=== PATIENT | female | born 1965 | race Caucasian/White ===

== ENCOUNTER → 2017-03-23 10:36 | Day surgery (SDC) | payer BC ==
[~2017-03-23 10:36] MED LIST: Diazepam TAB(*) 5 MG ONE; Heparin 2 UNITS/ML IVPREMIX* 2,000 ML IV ONE; Heparin(*) 1000 UNIT/ML 10 ML VIAL CATH LAB IV ONE; Iohexol 350 (CONTRAST) 200 ML MDV IV ONE; Lidocaine 1% INJ* 10 MG/ML 30 ML SDV ONE; Midazolam* 1 MG/ML 10 ML VIAL (10 MG) ONE; NS 0.9% 1000 ML* 1,000 ML IV SCH; VERAPAMIL 2.5 MG/ML 4 ML VIAL ONE; diPHENhydraMINE PO* 25 MG ONE; fentaNYL* 50 MCG/ML 2 ML VIAL (100 MCG VIAL) ONE; nitroGLYCERIN DRIP* 25,000 MCG/250 ML BTL ONE
[2017-03-23 12:20] LABS: ABS Basophils 0.1 10^3/ul (0-0.2); ABS Eosinophils 0 10^3/ul (0-0.6); ABS Lymphocytes 2.3 10^3/ul (1.0-4.8); ABS Monocytes 0.5 10^3/ul (0-0.8); ABS Neutrophils 4.2 10^3/ul (1.5-7.7); ABS Nucleated RBC 0 10^3/ul; Eosinophil % 0.6 % (0-6); Hematocrit 37 % (35-47); Hemoglobin 12.7 g/dl (12.0-16.0); Lymphocyte % 32.6 % (25-47); Mean Corpuscular HGB Conc 35 g/dl (31-36); Mean Corpuscular Hemoglobin 31 pg (27-31); Mean Corpuscular Volume 91 fL (80-97); Mean Platelet Volume 9 um3 (7.4-10.4); Nucleated Red Blood Cells % 0.1; Platelet Count 234 10^3/ul (150-450); Red Blood Count 4.05 10^6/ul (4.0-5.4); Red Cell Distribution Width 13 % (10.5-15)
[2017-03-23 12:39] LABS: EGFR Non-African American 86.1 (>60)
[2017-03-23 16:45] VITALS: BP 90/53
--- NOTE | 2017-03-29 22:37 | CATH ---
CC: Genevieve Harrell MD; Dr. Stone * CATH REPORT: DATE OF CATH: 03/23/17 - [facility] CATH PRIMARY CARE PHYSICIAN: Genevieve Harrell MD HARBOR DEPARTMENT MANAGER: Dr. Stone. PROCEDURES: 1. Bilateral selective coronary cineangiography. 2. Left heart catheterization. 3. Left ventriculography. HISTORY: A 51-year-old woman with flail mitral valve with symptomatic significant mitral regurgitation and chest pain, referred for coronary angiography to rule out underlying coronary artery disease. PROCEDURE ACCESS: Right radial artery, sheath 6F Slender. MEDICATIONS: 1. Subcu lidocaine. 2. IV Versed. 3. IV fentanyl. 4. Heparin 3000 units. 5. Verapamil 3 mg. 6. Nitroglycerin 300 mcg IA. DIAGNOSTIC CATHETER: A 5F TIG-4, 5F pigtail. HEMODYNAMICS: Initial BP 89/49, LV 72/2-15, no aortic valve gradient on pullback. Final BP 91/54. ANGIOGRAPHY: Left main: The left main is normal, has no stenosis. LAD: The LAD is moderate, extends to the apex, it supplies a moderate mid diagonal, the LAD has no significant stenosis. Circumflex: The circumflex is moderate, not dominant, with a moderate first marginal or ramus branch, it ends with a small posterolateral after a small second marginal. The circumflex has no stenosis. RCA: The RCA is dominant, large, with a moderate PDA and 2 posterolaterals, the RCA has no stenosis. LV gram: There is 3+ MR, normal LV systolic function, ejection fraction 55%. CONCLUSION: 1. No Obstructive coronary artery disease. 2. 3+ MR with preserved LVEF. 3. Successful right radial artery access. [id number]/[facility] #: [id number] [facility]
== END | disposition home or self-care (01) ==
LOC: CHICATH 10:36
PROVIDERS: ATTEND Internal Medicine Cardiovascular Disease
DX: R07.9 Chest pain, unspecified (principal); I34.0 Nonrheumatic mitral (valve) insufficiency; I34.1 Nonrheumatic mitral (valve) prolapse; M79.622 Pain in left upper arm; R00.2 Palpitations; R53.83 Other fatigue; G35 Multiple sclerosis; F41.8 Other specified anxiety disorders; E05.90 Thyrotoxicosis, unspecified without thyrotoxic crisis or storm; Z87.891 Personal history of nicotine dependence; R10.13 Epigastric pain
CPT/HCPCS: 36415; 80048; 84702; 85025; 93458; 99156; 99157; A9270-GY; C1769; J1644; J2250; J3010

== ENCOUNTER 2017-10-08 02:43 | Day surgery (SDC) | payer BC, OTHER ==
[2017-10-08] MEDS ORDERED: NS 0.9% 1000 ML* 1,000 ML IV ONE (03:06)
[2017-10-08] MEDS ORDERED: Morphine INJ* 2 MG/ML 1 ML SYRINGE (TWO MG - NEW SYRINGE VERSION) IV ONE (03:06)
[2017-10-08] MEDS ORDERED: Metoclopramide IV* 5 MG/ML 2 ML VIAL IV SLOW PU ONE (03:07)
--- NOTE | 2017-10-08 03:16 | ED ---
Abdominal Pain/Female - HPI Summary HPI Summary: This is Theodore mccoy Victor documenting for attending physician Adithya Field MD. This patient is a 51 year old F presenting to [facility] accompanied by her with a chief complaint of ABD pain that began a week ago but has gotten worse. Pt states that the pain was diffuse at first but has moved to her RLQ. The patient rates the pain 7/10 in severity. Patient reports intermittent vomiting and decreased appetite. Patient denies urinary sx, back pain, and fever. Last BM was 2 days ago and pt has a hx of constipation. Pt has not had any past ABD surgery. - History of Current Complaint Chief Complaint: EDAbdPain Stated Complaint: ABD PAIN Hx Obtained From: Patient Hx Last Menstrual Period: 03/26/15 Onset/Duration: Lasting Days, Still Present Timing: Constant Severity Initially: Mild Severity Currently: Severe Pain Intensity: 7 Pain Scale Used: 0-10 Numeric Location: Diffuse, Discrete At: RLQ Radiates: No Associated Signs and Symptoms: Positive: Decreased Appetite, Vomiting. Negative : Fever, Back Pain Allergies/Adverse Reactions: Allergies Allergy/AdvReac Type Severity Reaction Status Date / Time No Known Allergies Allergy Verified 10/08/17 03:09 Home Medications: Home Medications Aspirin 81 mg CHEW TAB* 81 mg PO DAILY 10/08/17 [History Confirmed 10/08/17] PMH/Surg Hx/FS Hx/Imm Hx Endocrine/Hematology History: Reports: Hx Thyroid Disease Denies: Hx Diabetes Cardiovascular History: Denies: Hx Hypertension, Hx Pacemaker/ICD History: Denies: Hx Dialysis, Hx Renal Disease Sensory History: Denies: Hx Hearing Aid Neurological History: Reports: Other Neuro Impairments/Disorders - ms Psychiatric History: Reports: Hx Anxiety, Hx Depression Denies: Hx Panic Disorder - Surgical History Surgery Procedure, Year, and Place: NOSE SURGERY AGE 18 - Immunization History Immunizations Up to Date: Yes Infectious Disease History: No Infectious Disease History: Denies: History Other Infectious Disease, Traveled Outside the [place] in Last 30 Days - Family History Known Family History: Negative: Cardiac Disease, Hypertension, Diabetes, Renal Disease, Respiratory Disease, Seizure Disorder, Blood Disorder - Social History Occupation: Employed Full-time Lives: With Family Alcohol Use: Rare Substance Use Type: Reports: None Smoking Status (MU): Never Smoked Tobacco Have You Smoked in the Last Year: No Review of Systems Constitutional: Other - decreased appetite. Negative: Fever Positive: Abdominal Pain, Vomiting Positive: no symptoms reported Musculoskeletal: Negative - back pain All Other Systems Reviewed And Are Negative: Yes Physical Exam - Summary Physical Exam Summary: VITAL SIGNS: Reviewed. GENERAL: Patient is a well-developed and nourished female who is lying comfortable in the stretcher. Patient is not in any acute respiratory distress. HEAD AND FACE: No signs of trauma. No ecchymosis, hematomas or skull depressions. No sinus tenderness. EYES: PERRLA, EOMI x 2, No injected conjunctiva, no nystagmus. EARS: Hearing grossly intact. Ear canals and tympanic membranes are within normal limits. MOUTH: Oropharynx within normal limits. NECK: Supple, trachea is midline, no adenopathy, no JVD, no carotid bruit, no c- spine tenderness, neck with full ROM. CHEST: Symmetric, no tenderness at palpation LUNGS: Clear to auscultation bilaterally. No wheezing or crackles. CVS: Regular rate and rhythm, S1 and S2 present, no murmurs or gallops appreciated. ABDOMEN: Soft, TTP in RLQ. No signs of distention. No rebound no guarding, and no masses palpated. Bowel sounds are normal. EXTREMITIES: FROM in all major joints, no edema, no cyanosis or clubbing. NEURO: Alert and oriented x 3. No acute neurological deficits. Speech is normal and follows commands. SKIN: Dry and warm Triage Information Reviewed: Yes Vital Signs On Initial Exam: Initial Vitals Temp Pulse Resp BP Pulse Ox 100.0 F 89 14 99/74 98 10/08/17 02:46 10/08/17 02:46 10/08/17 02:46 10/08/17 02:46 10/08/17 02:46 Vital Signs Reviewed: Yes Diagnostics - Vital Signs Vital Signs Temp Pulse Resp BP Pulse Ox 10/08/17 02:46 100.0 F 89 14 99/74 98 - Laboratory Result Diagrams: 10/08/17 03:11 10/08/17 03:11 Lab Statement: Any lab studies that have been ordered have been reviewed, and results considered in the medical decision making process. Abdominal Pain Fem Course/Dx - Course Course Of Treatment: This patient will be signed out to Dr. Hermosillo awaiting CT ABD/Pelvis and dispo. Bloodwork and UA obtained without significant abnormalities - Diagnoses Provider Diagnoses: Abdominal pain Discharge - Sign-Out/Discharge Documenting (check all that apply): Sign-Out Patient Signing out patient TO: Mic Hermosillo - Discharge Plan Referrals: Genevieve Harrell MD [Primary Care Provider] - Attestation Statement Scribe Attestation: This is Theodore mccoy documenting for attending physician Adithya Field MD. User Type: Provider with Scribe Provider Attestation: The documentation recorded by the scribe accurately reflects the service I personally performed and the decisions made by me.
[2017-10-08 03:22] LABS: ABS Basophils 0 10^3/ul (0-0.2); ABS Eosinophils 0.1 10^3/ul (0-0.6); ABS Lymphocytes 1.2 10^3/ul (1.0-4.8); ABS Monocytes 1.2 10^3/ul (0-0.8); ABS Neutrophils 11.9 10^3/ul (1.5-7.7); ABS Nucleated RBC 0 10^3/ul; Eosinophil % 0.8 % (0-6); Hematocrit 36 % (35-47); Hemoglobin 12.3 g/dl (12.0-16.0); Lymphocyte % 8.4 % (25-47); Mean Corpuscular HGB Conc 34 g/dl (31-36); Mean Corpuscular Hemoglobin 30 pg (27-31); Mean Corpuscular Volume 87 fL (80-97); Nucleated Red Blood Cells % 0.1; Platelet Count 275 10^3/ul (150-450); Red Blood Count 4.15 10^6/ul (4.00-5.40); Red Cell Distribution Width 15 % (10.5-15); White Blood Count 14.5 10^3/ul (3.5-10.8)
[2017-10-08 03:28] LABS: INR 1.06 (0.77-1.02)
[2017-10-08 03:37] LABS: EGFR Non-African American 86.1 (>60)
[2017-10-08] MEDS ORDERED: Iohexol 300* (CONTRAST) 10 ML SDV IV ONE (03:50)
[2017-10-08 04:44] LABS: Urine Appearance Clear; Urine Blood Negative (Negative); Urine Color Yellow; Urine Ketones Trace (Negative); Urine Protein Negative (Negative); Urine Specific Gravity 1.028 (1.010-1.030); Urine Urobilinogen Negative (Negative)
--- NOTE | 2017-10-08 07:08 | RAD ---
Addendum created by Ronal Erwin MD on 10/08/2017 7:23:50 AM EDT THIS REPORT CONTAINS FINDINGS THAT MAY BE CRITICAL TO PATIENT CARE. The findings were verbally communicated via telephone conference with DEXTER FORREST at 7:23 AM EDT on 10/08/2017. The findings were acknowledged and understood. Initial report created on 10/08/2017 7:07:43 AM EDT EXAM: CT Abdomen and Pelvis With Intravenous Contrast CLINICAL HISTORY: 51 years old, female; Pain; Abdominal pain; Localized; Right; Additional info: Abd pain TECHNIQUE: Axial computed tomography images of the abdomen and pelvis with intravenous contrast. Coronal and sagittal reformatted images were created and reviewed. COMPARISON: No relevant prior studies available. FINDINGS: Lung bases: There is a partially imaged region of consolidation versus scarring noted in the right lung base. ABDOMEN: Liver: Unremarkable. No mass. Gallbladder and bile ducts: Unremarkable. No calcified stones. No ductal dilation. Pancreas: Unremarkable. No mass. No ductal dilation. Spleen: Unremarkable. No splenomegaly. Adrenals: Unremarkable. No mass. Kidneys and ureters: Unremarkable. No solid mass. No hydronephrosis. Stomach and bowel: Unremarkable. No obstruction. No mucosal thickening. PELVIS: Appendix: The appendix is enlarged measuring approximately 1.4 CM. There are surrounding inflammatory changes noted. Findings are compatible with acute appendicitis. Bladder: Unremarkable. No mass. Reproductive: Unremarkable as visualized. ABDOMEN and PELVIS: Intraperitoneal space: No free air. There is no rim-enhancing fluid collection noted. Bones/joints: No acute fracture. No dislocation. Soft tissues: There is a small umbilical hernia containing mesenteric fat. Vasculature: Unremarkable. No abdominal aortic aneurysm. Lymph nodes: Unremarkable. No enlarged lymph nodes. IMPRESSION: The appendix is enlarged measuring approximately 1.4 CM. There are surrounding inflammatory changes noted. Findings are compatible with acute appendicitis. There is a partially imaged region of consolidation versus scarring noted in the right lung base. I have reviewed the report and agree with the findings and Immanuel Palm M.D.
--- NOTE | 2017-10-08 07:14 | ED ---
Progress - Progress Note Progress Note: This is scribe Juan Jose Walker documenting for attending Mic Hermosillo MD. Patient is signed out to Dr. Hermosillo via Dr. Field due to shift change at 0700 on 10/08/2017 CT A/P: IMPRESSION: The appendix is enlarged measuring approximately 1.4 CM. There are surrounding inflammatory changes noted. Findings are compatible with acute appendicitis. I, Dr. Hermosillo, personally performed the services described in this documentation as scribed in my presence and it is both accurate and complete. Re-Evaluation - Re-Evaluation First Eval Re-Evaluation Time: 07:31 Comment: Patient was asleep. MD did not wake patient up. Course/Dx - Course Course Of Treatment: Ms. Ricardo presented on the previous shift with RLQ pain. It started as generalized pain and discomfort a week ago and had moved into her RLQ. She has had some N/V. She had a few sips of water about [address] to the hospital. When my shift started, we were waiting for her CT scan to be read. The reading came back as acute appendicitis and she was given Zosyn and Dr. Neff was contacted. - Diagnoses Provider Diagnoses: Acute appendicitis - Provider Notifications Discussed Care Of Patient With: Chris Neff Time Discussed With Above Provider: 07:15 Instructed by Provider To: Other - Dr. Neff will see patient and admit patient to OR. Discharge - Sign-Out/Discharge Documenting (check all that apply): Patient Departure - ADMIT - Discharge Plan Condition: Stable Disposition: ADMITTED TO [facility] Referrals: Genevieve Harrell MD [Primary Care Provider] - - Billing Disposition and Condition Condition: STABLE Disposition: Admitted to [facility]
[2017-10-08] MEDS ORDERED: Piperacillin/Tazobac ADVAN(*) 3.375 GM in NS 0.9% 100 ML* 100 ML IVPB ONE (08:17)
[2017-10-08] MEDS ORDERED: HYDROmorphone INJ* 2 MG/ML CARPUJECT SYRINGE IV PRN (09:57)
[2017-10-08] MEDS ORDERED: Ondansetron INJ* 2 MG/ML VIAL IV PRN ×2 (09:57→15:03)
--- NOTE | 2017-10-08 11:13 | HP ---
CC: Dr. Genevieve Harrell; Dr. Nikole Stone; [facility] HISTORY AND PHYSICAL: DATE OF ADMISSION: 10/08/17 HISTORY OF PRESENT ILLNESS: I was contacted by the Emergency room regarding Ms. Ricardo 51-year-old female who presented to the [facility] Emergency Room with a 1-week history of worsening abdominal pain. Workup including labs and a CT scan was consistent with acute appendicitis and the surgery was contacted. The patient has received narcotics and is more comfortable at this time. The patient describes an onset of symptoms on Wednesday; this had started in the upper abdomen, it was associated with decreased appetite and nausea along with a rash. Patient felt that the rash was secondary to the picking berries in the bushes. She noted that by Wednesday she had more nausea and did on one occasion vomit. She continued to have abdominal pain and she tolerated only certain foods like tea and crackers. By Wednesday, pain had to increased to where she missed work and yesterday pain transferred from the upper abdomen to the right lower quadrant and at this point she presented to the emergency room. The patient denies any previous similar symptoms. She does have intermittent constipation and she is suffering with that now as well as. She denied any fevers and chills during this time. PAST MEDICAL HISTORY: Mitral valve prolapse, anxiety, and hypothyroidism. PAST SURGICAL HISTORY: Minimally invasive mitral valve repair. No abdominal surgeries. MEDICATIONS: Include: 1. Paxil. 2. Synthroid. 3. [place] Thyroid. 4. Aspirin 81 mg. 5. Xanax along with multivitamin. ALLERGIES: She has no known drug allergies. FAMILY HISTORY: Noncontributory. 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 She lives with the family and nonsmoker. Denies any drug use. REVIEW OF SYSTEMS: No fevers or chills. Decreased appetite as described. Cardiac issues as described. No cerebrovascular disease. No pulmonary issues. She does not snore. Abdominal pain as described. No dysuria. Intermittent constipation as described. Endocrine disorders that include hypothyroid, but no diabetes. No bleeding or clotting disorders. The patient tolerated anesthesia in the past well. She exercises regularly and leads an active lifestyle. No psychiatric illnesses. She does suffer with anxiety and is treated with Paxil and Xanax through her primary care doctor's office. PHYSICAL EXAMINATION GENERAL: She is alert and oriented x3. She is in no distress. VITAL SIGNS: Temperature 100. Vital signs are stable. Head, Eyes, Ears, Nose, and Throat: Normocephalic, atraumatic. Sclerae anicteric. Mucous membranes are dry. Neck: No lymphadenopathy. LUNGS: Clear bilaterally, well healed surgical incisions from heart surgery. ABDOMEN: Soft. It is nondistended, tender, diffusely without rebound and without guarding and most of the tenderness at the right lower quadrant. No hernias or masses are noted. No CVA tenderness. RECTAL: Not performed. EXTREMITIES: Within normal limits. DIAGNOSTIC STUDIES/LAB DATA: Labs reviewed, show white count 14.5. Chemistry panel shows an elevated CRP. Urinalysis reviewed. Patient underwent a CT scan of the abdomen and pelvis, these were reviewed, which showed a dilated appendix that was retrocecal with no evidence of perforation at this time. IMPRESSION: Acute appendicitis, retrocecal. RECOMMENDATIONS: Antibiotics, IV fluids, n.p.o. status and operation for a laparoscopic appendectomy. I described the procedure in detail to her. We spoke of possible complications, which could but not limited to bleeding, infection, abscess formation, need for open procedure, need for additional procedures, injury to adjacent organs including urinary or bowel. The patient agrees and signed the consent. We also discussed the alternatives of watchful waiting and antibiotics alone. I do not recommend this. The patient agrees to proceed with surgical intervention. She will be admitted and taken to the OR later today. [id number]/[facility] #: [id number] [facility]
[2017-10-08] MEDS ORDERED: HYDROmorphone INJ* 1 MG/ML CARPUJECT SYRINGE IV ONE (11:28)
[2017-10-08] MEDS ORDERED: Piperacillin/Tazobactam VIAL*) 3.375 GM VIAL (COMPD & OVERRIDE) IVPB ONE (12:22)
[2017-10-08] MEDS ORDERED: Midazolam* 1 MG/ML 2 ML VIAL (2 MG) ONE (12:45)
[2017-10-08] MEDS ORDERED: Rocuronium* 10 MG/ML VIAL ONE (12:45)
[2017-10-08] MEDS ORDERED: fentaNYL* 50 MCG/ML 2 ML VIAL (100 MCG VIAL) ONE ×3 (12:45→16:28)
[2017-10-08] MEDS ORDERED: ZOSYN 3.375 GM IVPB ONE ×2 (13:00)
[2017-10-08] MEDS ORDERED: Bupivacaine 0.25% W/EPI* 10 ML SDV ONE (13:28)
[2017-10-08] MEDS ORDERED: Dexamethasone IV* 4 MG/ML 1 ML (4 MG) ONE (14:49)
[2017-10-08] MEDS ORDERED: Propofol* 10 MG/ML 20 ML BTL IV PUSH ONE (14:56)
[2017-10-08] MEDS ORDERED: DiMENhydriNATE IV* 50 MG/ML VIAL IV PUSH PRN (15:03)
[2017-10-08] MEDS ORDERED: Naloxone* 0.4 MG/ML 1 ML VIAL IV PRN (15:03)
[2017-10-08] MEDS ORDERED: HYDROcodone/ACETAMIN 5-325 MG* 1 TAB PO PRN (15:03)
[2017-10-08] MEDS ORDERED: Morphine INJ* 2 MG/ML 1 ML SYRINGE (TWO MG - NEW SYRINGE VERSION) IV PRN (15:03)
[2017-10-08] MEDS ORDERED: Acetaminophen TAB* 325 MG PO PRN (15:03)
[2017-10-08] MEDS ORDERED: fentaNYL* 50 MCG/ML 2 ML VIAL (100 MCG VIAL) IV PRN (15:03)
[2017-10-08] MEDS ORDERED: Ketorolac INJ* 30 MG/ML 1 ML VIAL IV PRN (15:03)
--- NOTE | 2017-10-08 15:37 | BRIEFOPN ---
Brief Operative Note - Surgery Procedures: Pre-OP Diagnoses: acute appendicitis Post-op Diagnosis: same Procedure: Laparoscopic appendectomy Surgeon: Tawanda Asst: none Anethesia: ASHLEYA EBL: minimal IVF: crystalloid Specimen: appendix Drains: none
[2017-10-08] MEDS ORDERED: Ketorolac INJ* 30 MG/ML 1 ML VIAL ONE (16:35)
[2017-10-08] MEDS ORDERED: Piperacillin/Tazobactam VIAL*) 3.375 GM in NS 0.9% 100 ML* 100 ML IVPB SCH (17:00)
[2017-10-08 17:52] VITALS: BP 109/68
--- NOTE | 2017-10-09 00:41 | OP ---
CC: Dr. Genevieve Harrell * DATE OF OPERATION: 10/08/17 - [facility] DATE OF : 69 SURGEON: Chris Neff MD ANESTHESIOLOGY FELLOW: None. ANESTHESIOLOGIST: Dr. López. ANESTHESIA: General. PRE-OP DIAGNOSIS: Acute appendicitis. POST-OP DIAGNOSIS: Acute appendicitis. OPERATIVE PROCEDURE: Laparoscopic appendectomy. BLOOD LOSS: 50 mL. FLUIDS: Minimal crystalloid fluid given. SPECIMENS: Appendix. DRAINS: None. DESCRIPTION OF PROCEDURE: The patient was identified in the preoperative area. She had already been marked. Consent signed. She was taken to the operating room and placed on the operating table in a supine position. Preoperative antibiotics were given. Sequential devices were placed on bilateral lower extremities. General anesthesia was induced. The patient's abdomen was prepped and draped in a standard surgical fashion. A time-out was performed. Folds of the umbilicus were elevated anteriorly and a Veress needle was inserted into the abdominal cavity, which was then allowed to insufflate to a pressure of 15 mmHg. It insufflated, but I did not feel that this was in the appropriate fashion and felt that this was possibly in the preperitoneal space. We then made a subcostal incision on the right, deepening down to the anterior fascia, which was elevated and then the Veress needle was inserted and appropriately intubated the abdominal cavity. It was insufflated to a pressure of 15 mmHg in the appropriate fashion. The Veress needle was removed and a 12- mm trocar was inserted. Laparoscope was inserted through this and there was no evidence of injury from the trocar insertion or from the Veress needle. Review of the abdomen showed that the preperitoneal plane into the umbilicus did insufflate with some air, but this did not obscure our view all together. Review of the abdomen showed normal appearing small bowel, peritoneal fluid in the pelvis and the right pericolic gutter. Additional trocars were then placed in the following position: A 5-mm in the umbilical and a 5-mm in the suprapubic area. Table was repositioned and attention was turned towards the appendix. We identified a small bowel and retracted this superiorly into the right. It was attached to the terminal ileum. Once attached to the side wall, we did identify the base of the appendix and this was intact, but the appendix curled behind the cecum and into the retroperitoneum. This was slowly taken down from the retroperitoneum with both blunt and sharp dissection until we can rotate the cecum and descending colon to the midline. The appendix was plastered to the cecum and we also had to take the peritoneum overlying this site to free up the curled appendix that appeared inflamed. At one point, I did enter into the appendix and pus was suctioned off. We assured that this did not enter into many of the areas of the field we were working in. This drained the appendix all together. There was no fecalith. No evidence of stool and this was strictly pus. I turned my attention back to the base of the appendix. A window was made and a 45- mm sepulveda BENNY stapling device was fired across this. This allowed us to pull the proximal portion of the appendix anteriorly and with cautery to take portions of the mesoappendix until we could get into a better line to place stapler along the mesoappendix, this was performed with a 45-mm sepulveda BENNY stapling device. The appendix was placed in an endoscopic retrieval bag and brought out through the right upper quadrant. Next, we irrigated copiously. There was no evidence of stool or any fecal material. There was no pus. We not only irrigated the surgical site, but also into the pelvis and above the liver. The table was repositioned back to neutral. The appendix was removed from the right upper quadrant port site after opening up the bag and retrieving the appendix piece by piece to get this enlarged appendix through this incision site. This was then passed off. The abdomen was allowed to collapse. Trocars removed under direct vision and all 3 skin incisions were reapproximated with 4-0 Monocryl subcuticular sutures followed by Steri-Strips and sterile dressing. The patient tolerated the procedure well, was woken up in the OR, and transferred to the PACU in stable condition. [id number] #: [id number] [facility]
== END 2017-10-08 18:15 | disposition home or self-care (01) ==
LOC: ED 02:43 → OR 12:00
PROVIDERS: ATTEND Surgery
DX: K35.80 Unspecified acute appendicitis (principal); R10.31 Right lower quadrant pain; R11.10 Vomiting, unspecified; E03.9 Hypothyroidism, unspecified; F41.8 Other specified anxiety disorders; Z79.899 Other long term (current) drug therapy
CPT/HCPCS: 36415; 74177; 80053; 81003; 82150; 83605; 83690; 83735; 84702; 85025; 85610; 85730; 86140; 88304; 96374; 96375; 99284; C1776; J1100; J1170; J1885; J2250; J2270; J2543; J2704; J2765; J3010; Q9967